=== PATIENT | male | born 1970 ===

== ENCOUNTER 2018-10-06 00:12 | Emergency (ER) | payer SELFPAY ==
--- NOTE | 2018-10-06 01:17 | ED PDOC ---
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 Patient reports of burning sensation to the back that radiates to his chest. Also reports of feeling tired. Otherwise, patient denies fever, vomiting, diarrhea, fever or leg pain. He has never had these symptoms before. Currently, he has pain to his chest. PMD: no family provider Past Medical History Reviewed: Historical Data, Nursing Documentation, Vital Signs Vital Signs: Last Vital Signs Temp 98.6 F 10/06/18 00:41 Pulse 66 10/06/18 00:41 Resp 20 10/06/18 00:41 BP 154/98 H 10/06/18 00:41 Pulse Ox 96 10/06/18 00:41 Primary Care Provider: FAMILY PROVIDER,NO - Medical History PMH: No Chronic Diseases - Family History Family History: States: Other Other Family History: mom had a heartattack at the age of 64 - Social History Current smoker - smoking cessation education provided: No Alcohol: None Drugs: Denies - Allergies Allergies/Adverse Reactions: Allergies Allergy/AdvReac Type Severity Reaction Status Date / Time aspirin Allergy RASH Verified 10/06/18 00:44 Review of Systems ROS Statement: Except As Marked, All Systems Reviewed And Found Negative Constitutional: Positive for: Other (tired). Negative for: Fever Gastrointestinal: Negative for: Vomiting, Diarrhea Musculoskeletal: Positive for: Back Pain. Negative for: Leg Pain Physical Exam - Reviewed Nursing Documentation Reviewed: Yes Vital Signs Reviewed: Yes - Physical Exam Appears: Positive for: Non-toxic, No Acute Distress Head Exam: Positive for: ATRAUMATIC, NORMAL INSPECTION, NORMOCEPHALIC Skin: Positive for: Normal Color, Warm, Dry. Negative for: Rash Eye Exam: Positive for: EOMI, Normal appearance, PERRL ENT: Positive for: Normal ENT Inspection Neck: Positive for: Normal, Painless ROM, Supple. Negative for: Decreased ROM Cardiovascular/Chest: Positive for: Regular Rate, Rhythm. Negative for: Chest Non Tender (left chest wall tenderness ) Respiratory: Positive for: Normal Breath Sounds. Negative for: Respiratory Distress Pulses-Dorsalis Pedis (L): 2+ Pulses-Dorsalis Pedis (R): 2+ Gastrointestinal/Abdominal: Positive for: Normal Exam, Soft Back: Positive for: Normal Inspection. Negative for: L CVA Tenderness, R CVA Tenderness Extremity: Positive for: Normal ROM. Negative for: Tenderness, Pedal Edema, Deformity Neurological/Psych: Positive for: Awake, Alert, Normal Tone, Oriented (x3) - Laboratory Results Result Diagrams: 10/06/18 01:45 10/06/18 01:45 - ECG ECG: Positive for: Interpreted By Me, Viewed By Me ECG Rhythm: Positive for: Sinus Bradycardia Rate: 58 O2 Sat by Pulse Oximetry: 96 (RA) Pulse Ox Interpretation: Normal - Radiology X-Ray: Interpreted by Me, Viewed By Me X-Ray Interpretation: No Acute Disease Medical Decision Making Medical Decision Making: Time: 01:07 Impression: back pain weakness, rule out anemia, pneumonia, muscular pain Plan: --CMP --Troponin --CBC w/ differential --CXR 03:30 Patient's labs are normal and troponin is negative EKG: sinus bradycardia with 58bpm CXR presents no abnormalities, as read by provider on reeval of patient, pt feels improved, in no distress stable for dc outpt follow up recommended Scribe Attestation: Documented by Keri Perales, acting as a scribe for Kristen Boss MD. Provider Scribe Attestation: All medical record entries made by the Scribe were at my direction and personally dictated by me. I have reviewed the chart and agree that the record accurately reflects my personal performance of the history, physical exam, medical decision making, and the department course for this patient. I have also personally directed, reviewed, and agree with the discharge instructions and disposition. Disposition - Clinical Impression Clinical Impression: Muscular pain, Hypertension - Patient ED Disposition Is Patient to be Admitted: No Counseled Patient/Family Regarding: Studies Performed, Diagnosis, Need For Followup - Disposition Referrals: [facility] [Outside] [facility] [Outside] Disposition: Routine/Home Disposition Time: 03:10 Condition: IMPROVED Additional Instructions: follow up with the clinic in 1-2 days take motrin for pain as needed return to the ED with any worsening or concerning symptoms Instructions: Muscle and Bone Pain (DC) Forms: [facility] (Chinese), [facility] (Khmer) Print Language: GAMBIAN
[2018-10-06 01:59] LABS: BASO # 0.1 K/uL (0.0-0.2); BASO % 0.7 % (0.0-2.0); EOS # 0.3 K/uL (0.0-0.7); EOS % 2.9 % (0.0-4.0); HEMOGLOBIN 13.7 g/dL (12.0-18.0); LYMPH # 3.1 K/uL (1.0-4.3); LYMPH % 35.6 % (20.0-40.0); MEAN CELL VOLUME 79.5 fl (80.0-94.0); MEAN CORPUSCULAR HEMOGLOBIN 27.5 pg (27.0-31.0); MEAN CORPUSCULAR HGB CONC 34.6 g/dL (33.0-37.0); MEAN PLATELET VOLUME 9.6 fl (7.2-11.7); MONO # 0.8 K/uL (0.0-0.8); MONO % 8.6 % (0.0-10.0); NEUT # 4.6 K/uL (1.8-7.0); NEUT % 52.2 % (50.0-75.0); NRBC % 0.1 % (0.0-0.0); RED CELL DISTRIBUTION WIDTH 14.2 % (11.5-14.5); WHITE BLOOD COUNT 8.8 K/uL (4.8-10.8)
[2018-10-06 02:09] LABS: ALB/GLOB RATIO 1.2 (1.0-2.1); ALBUMIN 4.4 g/dL (3.5-5.0); BLOOD UREA NITROGEN 17 mg/dl (9-20); CALCIUM 8.8 mg/dL (8.4-10.2); GFR NON-AFRICAN AMERICAN > 60
[2018-10-06 02:14] LABS: ALT/SGPT 39 U/L (21-72); AST/SGOT 51 U/L (17-59)
[2018-10-06 04:02] VITALS: BP 128/87; RESP 16; TEMP 98.1
--- NOTE | 2018-10-06 08:33 | RAD ---
Date of service: 10/06/2018 HISTORY: chest back pain COMPARISON: No prior. TECHNIQUE: Chest PA and lateral views FINDINGS: LUNGS: No active pulmonary disease. PLEURA: No significant pleural effusion identified. No pneumothorax apparent. CARDIOVASCULAR: No aortic atherosclerotic calcification present. Normal cardiac size. No pulmonary vascular congestion. OSSEOUS STRUCTURES: No significant abnormalities. VISUALIZED UPPER ABDOMEN: Normal. OTHER FINDINGS: None. IMPRESSION: No active disease.
[2018-10-07 03:39] VITALS: PULSE 58; O2SAT 96
== END 2018-10-06 04:05 | disposition home or self-care (01) ==
LOC: H.ER 00:12
DX: M79.10 Myalgia, unspecified site (principal); I10 Essential (primary) hypertension